=== PATIENT | female | born 1945 | race Caucasian/White ===

== ENCOUNTER 2019-07-22 12:51 | Emergency (ER) | payer MEDICARE ==
[~2019-07-22] VITALS: Ht 157.5 cm; Wt 70.0 kg
--- NOTE | 2019-07-22 13:14 | NUR ---
BIB [facility]. PT HAD MECHANICAL GLF AFTER TRIPPING OVER HER FEET WALKING TO CAR. PT DENIES DIZZINESS OR LOC. PT SCRAPED FOREHEAD, NOSE, AND BILAT KNEES, NO DEFORMITY NOTED. HX LEFT KNEE REPLACEMENT 16 YEARS AGO. PT CONNECTED TO MONITORING. CALL LIGHT IN REACH. FALL PRECAUTIONS IN PLACE. AT BEDSIDE.
[2019-07-22] MEDS ORDERED: ACETAMINOPHEN 325 MG TABLET ONE (13:27)
[2019-07-22] MEDS ORDERED: ACETAMINOPHEN 325 MG TABLET PO ONE (13:30)
[2019-07-22] MEDS ORDERED: PLEASE ENTER ALLERGIES MC SCH (14:00)
--- NOTE | 2019-07-22 14:36 | NUR ---
PT RESTING COMFORTABLY ON GURNEY. NADN. PT STATES PAIN IS BETTER AFTER TYLENOL. AT BEDSIDE.
--- NOTE | 2019-07-22 15:10 | NUR ---
PT BACK FROM CT. CONNECTED TO MONITORING.
--- NOTE | 2019-07-22 15:25 | NUR ---
ALL RESULTS ARE BACK AT THIS TIME. CHART UP FOR RECHECK.
--- NOTE | 2019-07-22 16:11 | NUR ---
PT TOOK DOSE OF HOME PAIN MEDS. HYDROCODONE-ACETAMINOPHIN 7.5-325, 1 TAB. NOTIFIED.
--- NOTE | 2019-07-22 16:24 | NUR ---
PT READY FOR DC, STATES WILL DRIVE HOME. NOTIFIED.
[2019-07-22 17:26] VITALS: BP 162/79
== END 2019-07-22 17:29 | disposition home or self-care (01) ==
LOC: ED 17:24
DX: S00.31XA Abrasion of nose, initial encounter (principal); S00.81XA Abrasion of other part of head, initial encounter; Z87.891 Personal history of nicotine dependence; W01.0XXA Fall on same level from slipping, tripping and stumbling without subsequent striking against object, initial encounter; Y93.89 Activity, other specified; Y92.009 Unspecified place in unspecified non-institutional (private) residence as the place of occurrence of the external cause; Y99.8 Other external cause status
CPT/HCPCS: 70450; 70486; 72125; 99284